=== PATIENT | female | born 1995 | race Caucasian/White ===

== ENCOUNTER 2022-10-27 18:49 | Emergency (ER) | payer OTHER ==
[~2022-10-27] VITALS: Ht 162.6 cm; Wt 72.6 kg
[2022-10-27 19:14] VITALS: BP 125/85
[2022-10-27] MEDS ORDERED: AMOCLA875 PO (20:32)
== END 2022-10-27 20:43 | disposition home or self-care (01) ==
LOC: ER 18:49
DX: S61.452A Open bite of left hand, initial encounter (principal); W54.0XXA Bitten by dog, initial encounter
CPT/HCPCS: 99283; A9270

== ENCOUNTER 2024-09-16 05:34 | Emergency (ER) | payer OTHER ==
[~2024-09-16] VITALS: Ht 162.6 cm; Wt 81.7 kg
[~2024-09-16 05:34] MED LIST: AMOCLA875 PO
[2024-09-16] MEDS ORDERED: Ondansetron HCl 2 MG / ML 2ML Vial IV PRN (05:55)
[2024-09-16 06:08] LABS: BASOPHILS ABSOLUTE AUTO 0.08 K/mm3 (0.00-0.23); BASOPHILS PERCENT AUTO 0 % (0-2); EOSINOPHILS ABSOLUTE AUTO 0.18 K/mm3 (0.00-0.68); EOSINOPHILS PERCENT AUTO 1 % (0-6); Hematocrit 39.7 % (33.0-51.0); Hemoglobin 13.7 g/dL (11.5-16.0); IMMATURE GRAN ABSOLUTE AUTO 0.08 K/mm3 (0.00-0.10); IMMATURE GRAN PERCENT AUTO 0 % (0-1); LYMPHOCYTES ABSOLUTE AUTO 3.09 K/mm3 (0.84-5.20); LYMPHOCYTES PERCENT AUTO 15 % (21-46); MONOCYTES ABSOLUTE AUTO 0.93 K/mm3 (0.16-1.47); MONOCYTES PERCENT AUTO 5 % (4-13); Mean Corpuscular HGB Conc 34.5 g/dL (31.5-36.5); Mean Corpuscular Volume 88 fL (80-100); NEUTROPHILS ABSOLUTE AUTO 16.29 K/mm3 (1.96-9.15); NEUTROPHILS PERCENT AUTO 79 % (41-73); NRBC ABSOLUTE 0.00 K/mm3 (0.00-0.02); NRBC Auto 0.0 /100 WBC (0.0-0.2); Platelet Count 309 K/mm3 (150-400); RDW Coefficient Variation 11.9 % (11.7-14.2); RDW Standard Deviation 38.0 fL (35.1-46.3)
[2024-09-16] MEDS ORDERED: Pantoprazole Sodium 40 MG Injection IV ONE (06:10)
[2024-09-16] MEDS ORDERED: Prochlorperazine Edisylate 10 mg Vial IV ONE (06:10)
[2024-09-16] MEDS ORDERED: NS 1,000 ML IV SCH (06:10)
[2024-09-16] MEDS ORDERED: FentaNYL Citrate 50 MCG/ML 2 ML Injection IV ONE (06:10)
[2024-09-16 06:27] LABS: Alanine Aminotransfer (ALT/SGP 39.0 U/L (12-78); Albumin, Blood 4.2 g/dL (3.4-5.0); Albumin/Globulin Ratio 1.1 (0.8-1.8); Anion Gap 11.0 mmol/L (3-11); Aspartate Aminotrans (AST/SGOT 42.0 U/L (12-37); Bilirubin, Total 0.4 mg/dL (0.1-1.0); Blood Urea Nitrogen 8.0 mg/dL (8-24); CO2, Blood 20.0 mmol/L (21-32); Calcium, Blood 8.9 mg/dL (8.5-10.1); Chloride, Blood 109.0 mmol/L (98-108); Creatinine, Blood 0.91 mg/dL (0.40-1.00); Globulin, Blood 3.7 g/dL (2.2-4.0); Glucose, Blood 129.0 mg/dL (70-99); Potassium, Blood 3.9 mmol/L (3.5-5.5); Sodium, Blood 136.0 mmol/L (136-145); Total Protein, Blood 7.9 g/dL (6.4-8.2)
[2024-09-16 06:48] VITALS: BP 113/92
[2024-09-16] MEDS ORDERED: Protonix40 MG PO (08:06)
[2024-09-16] MEDS ORDERED: ONDA4ODT MM (08:06)
== END 2024-09-16 08:23 | disposition home or self-care (01) ==
LOC: ER 05:34
PROVIDERS: Emergency Medicine
DX: R10.13 Epigastric pain (principal); R11.2 Nausea with vomiting, unspecified; Z79.2 Long term (current) use of antibiotics
CPT/HCPCS: 71045; 76705; 80053; 83690; 84484; 85025; 93005; 93010; 96361; 96374; 96375; 99284-25; A9270; J0780; J2470; J3010; J7030